=== PATIENT | male | born 1950 | race African-American/Black ===

== ENCOUNTER 2019-06-13 23:37 | Emergency (ER) | payer MEDICARE, MEDICAID, SELFPAY ==
[2019-06-13 23:49] VITALS: BP 170/80; PULSE 87; RESP 18; TEMP 36.7; O2SAT 97
--- NOTE | 2019-06-13 23:54 | ED.EAR ---
HPI - Ear Problem General Chief complaint: Ear Stated complaint: right ear pain Time Seen by Provider: 06/13/19 23:54 Source: patient Mode of arrival: Ambulatory Limitations: no limitations History of Present Illness HPI Narrative: The patient has onset of right ear pain, started about 4 hours ago. He has no discharge from the right ear. He does have URI symptoms with rhinorrhea and right periorbital pain. He feels pressure in that area. He has no associated sore throat. He does cough or congestion. He is a nonsmoker. He has no allergies. He has never had an ear infection. He has no dental pain. He has no chest pain, or significant cough. He is taking no analgesics, he denies analgesics now. Related Data Home Medications Medication Instructions Recorded Confirmed lovastatin 40 mg PO QDAY #0 01/05/13 05/02/18 [BLOOD PRESSURE MED] #0 02/07/13 05/02/18 [DIABETES MED] #0 02/07/13 05/02/18 Previous Rx's Medication Instructions Recorded cefdinir 300 mg PO BID 7 Days #14 cap 06/14/19 Allergies Allergy/AdvReac Type Severity Reaction Status Date / Time Penicillins [PENICILLINS] Allergy Unknown Verified 05/02/18 12:47 Review of Systems Review of Systems ROS Unobtainable: All systems reviewed & are unremarkable except as noted in HPI and below Constitutional Constitutional: Denies chills, Denies fever(s) and Denies weakness Eyes Eyes: Denies change in vision, Denies eye discharge, Denies irritation and Denies loss of vision Comments: Right periorbital pain ENT Ears, Nose, Mouth, and Throat: Reports as per HPI, Denies change in voice, Denies dental pain, Reports otalgia and Denies sore throat Cardiovascular Cardiovascular: Denies chest pain Neurologic Neurologic: Denies loss of vision and Denies weakness [facility] Medical History (Updated 06/14/19 @ 00:13 by Jersey Mejía MD) DM type 2 (diabetes mellitus, type 2) (Acute) Hypertension (Acute) Surgical History (Updated 06/14/19 @ 00:09 by Jersey Mejía MD) No pertinent past surgical history (Acute) Social History Smoking Status: Never smoker Social History Smoking Status: Never smoker Exam Initial Vital Signs Initial Vital Signs: Vital Signs Temperature 98.1 F 06/13/19 23:49 Pulse Rate 87 06/13/19 23:49 Respiratory Rate 18 06/13/19 23:49 Blood Pressure 170/80 H 06/13/19 23:49 Pulse Oximetry 97 10 23:49 Const General: cooperative, healthy appearing and well developed Nutritional Appearance: well nourished Orientation: alert, awake, oriented x3 and not confused [facility] Head: normocephalic, atraumatic and other (Right maxillary sinus tenderness.) Ears: external ears normal, TM normal on the left, mastoids normal and TM abnormal with fluid behind the TM; not erythematous Nose: external nose normal Face and sinus: sinuses nontender, face symmetric, no sinus tenderness and No dry mucous membranes Mouth: oral mucosae normal and moist mucous membranes Teeth and gingiva: dentition normal Throat: tonsils normal Eyes General: appearance normal, both eyes and all related structures Eyelids: eyelids normal Conjunctivae: conjunctivae normal Sclera: sclerae normal Pupils: PERRL EOM: EOM intact bilaterally Neck Neck: No lymphadenopathy Cardio Rate: regular rate Rhythm: regular rhythm Heart Sounds: S1 normal, S2 normal, no click, no gallops, no murmurs and no rubs Pulses: normal peripheral pulses Course Course Course Narrative: The patient has a penicillin allergy. The intent was to start him on Omnicef tonight. Omnicef is unavailable in the [facility] pharmacy. He was given a single dose of Ceftin. He will be prescribed Omnicef b.i.d. for 7 days, starting tomorrow. Orders Ordered: Discontinued Medications Cefdinir (Omnicef) 300 mg PO NOW ONE Stop: 06/14/19 00:06 Cefuroxime Axetil (Ceftin) 500 mg PO NOW ONE Stop: 06/14/19 00:27 Last Admin: 06/14/19 00:31 Dose: 500 mg Documented by[facility] Vital Signs Vital signs: Vital Signs - 8 hr 06/13/19 23:49 Temperature 98.1 F Pulse Rate 87 Respiratory Rate 18 Blood Pressure 170/80 H Pulse Oximetry 97 Discharge Plan Departure Patient Disposition: Home Clinical Impression: Acute maxillary sinusitis Qualifiers: Recurrence: non-recurrent Qualified Code(s): J01.00 - Acute maxillary sinusitis, unspecified Instructions: Sinusitis Activity Restrictions/Additional Instructions: Take Omnicef daily as prescribed. Mucinex is available [id number]. I would suggest this to alleviate the pressure in her sinuses and in her right ear. Warm showers frequently. Return here if worse. Prescriptions: New cefdinir 300 mg capsule 300 mg PO BID 7 Days Qty: 14 RF: 0 No Action lovastatin 40 MG tablet 40 mg PO QDAY Qty: 0 RF: 0 [BLOOD PRESSURE MED] Qty: 0 RF: 0 [DIABETES MED] Qty: 0 RF: 0
[2019-06-14] MEDS: cefUROXime 250 MG TABLET 500 MG PO (00:31)
[2019-06-14 00:40] VITALS: BP 156/80; PULSE 81; RESP 16; O2SAT 100
== END 2019-06-14 00:40 | disposition home or self-care (01) ==
PROVIDERS: Emergency Provider Emergency Medicine
DX: J01.00 Acute maxillary sinusitis, unspecified (principal)
CPT/HCPCS: 99282; 99283